=== PATIENT | male | born 1960 | race Caucasian/White ===

== ENCOUNTER 2023-10-21 19:28 | Inpatient (IN) | payer MEDICAID, OTHER ==
[~2023-10-21] VITALS: Ht 170.2 cm; Wt 76.7 kg
[~2023-10-21 19:28] MED LIST: ADVAIR
[2023-10-21 21:11] LABS: HEMATOCRIT. 43.7 % (42.0-52.0); HEMOGLOBIN. 15.2 g/dL (14.0-18.0); MEAN CORPUSCULAR HEMOGLOBIN 31.6 pg (28.0-32.0); MEAN CORPUSCULAR HGB CONC 34.9 g/dL (31.0-37.0); MEAN CORPUSCULAR VOLUME 90.7 fL (80.0-94.0); MEAN PLATELET VOLUME 8.7 fl (7.4-10.4); PLATELET 249 x1000/uL (130-400); RED BLOOD CELL COUNT 4.82 mill/uL (4.7-6.1); RED CELL DISTRIBUTION WIDTH 13.7 % (11.6-14.6); WHITE BLOOD COUNT 7.2 x1000/uL (4.5-11.0)
[2023-10-21 21:14] LABS: DIFFERENTIAL COMMENT 1
[2023-10-21 21:19] LABS: CHLORIDE 105 mEq/L (98-107); POTASSIUM 4.1 mEq/L (3.5-5.1); SODIUM 142 mEq/L (136-145)
[2023-10-21 21:20] LABS: CALCIUM 10.4 mg/dL (8.7-10.4); CARBON DIOXIDE 28 mEq/L (21-32)
[2023-10-21 21:25] LABS: CREATININE 0.9 mg/dL (0.6-1.3); GLUCOSE 108 mg/dL (70-105); UREA NITROGEN BLOOD 22 mg/dL (9-23)
[2023-10-21 21:28] LABS: TROPONIN I HIGH SENSITIVITY 86 ng/L (3.0-53)
[2023-10-21] MEDS ORDERED: METHYLPREDNISOLONE SOD SUCC 125MG/2ML (ACT-O-VIAL) IV STA (21:31)
[2023-10-21 21:33] LABS: CLARITY URINE CLEAR (CLEAR); COLOR URINE YELLOW (YELLOW); GLUCOSE URINE NEGATIVE (NEGATIVE); KETONES URINE TRACE (NEGATIVE); LEUKOCYTE ESTERASE URINE NEGATIVE (NEGATIVE); NITRITE URINE NEGATIVE (NEGATIVE); OCCULT BLOOD URINE 2+ (NEGATIVE); PH URINE 5.5 (4.5-8.0); PROTEIN URINE NEGATIVE (NEGATIVE); UROBILINOGEN URINE 0.2 E.U./dL (0.2-1.0)
[2023-10-21 21:44] LABS: PLATELET ESTIMATE NORMAL
[2023-10-21 21:45] VITALS: PULSE 96; RESP 22; O2SAT 98
[2023-10-21 21:58] LABS: WBC URINE NONE SEEN /hpf (0-2)
[2023-10-21 22:00] LABS: BACTERIA URINE NONE SEEN; SQUAMOUS EPITHELIAL CELL URINE RARE /lpf (RARE/1+)
[2023-10-21] MEDS: ALBUTEROL (0.083%) 2.5MG/3ML NEB HHN STA ×2 (22:01)
[2023-10-21] MEDS: IPRATROPIUM BROMIDE (0.02%) 0.5MG/2.5ML NEB HHN STA ×2 (22:01)
[2023-10-21] MEDS ORDERED: ASPIRIN 81MG TABLET PO ONE (22:45)
[2023-10-22] VITALS (7 sets, daily range): BP systolic 104–123; BP diastolic 56–72; PULSE 78–97; RESP 18–22; TEMP 97.9–98; O2SAT 98–99
[2023-10-22] MEDS: METHYLPREDNISOLONE SOD SUCC 125MG/2ML (ACT-O-VIAL) IV NR (02:00)
[2023-10-22] MEDS: ALBUTEROL (0.5%) 2.5MG/0.5ML NEB HHN ONE (03:10)
[2023-10-22 03:55] LABS: TROPONIN I HIGH SENSITIVITY 87 ng/L (3.0-53)
[2023-10-22] MEDS: ASPIRIN 81MG TABLET PO NR (03:57)
[2023-10-22] MEDS ORDERED: ALBUTEROL (0.083%) 2.5MG/3ML NEB HHN PRN (09:00)
[2023-10-22] MEDS: ENOXAPARIN 40MG/0.4ML SYR SUBCUT SCH (10:00)
[2023-10-22] MEDS: PREDNISONE 20MG TABLET PO NR (10:00)
[2023-10-22] MEDS: IPRATROPIUM/ALBUTEROL 0.5-3(2.5)MG/3ML NEB NEB SCH (10:48)
[2023-10-22] MEDS ORDERED: ACETAMINOPHEN 650MG/20.3ML UDC PO PRN (12:45)
[2023-10-22] MEDS: SODIUM CHLORIDE 0.9% INJ 3ML FLUSH IVF SCH (13:32)
[2023-10-22] MEDS: ACETAMINOPHEN 325MG TABLET PO PRN (13:39)
[2023-10-22] MEDS ORDERED: MAGNESIUM/ALUMINUM HYDROXIDE/SIMETHICONE 30ML UDC PO PRN (15:45)
[2023-10-22] MEDS: PANTOPRAZOLE SODIUM 40 MG/VIAL IV SCH (16:37)
[2023-10-22 17:25] LABS: PHOSPHORUS 2.3 mg/dL (2.5-4.9)
[2023-10-22] MEDS: MAGNESIUM 2 G PREMIX 50 ML IV NR (21:06)
[2023-10-23] VITALS (11 sets, daily range): BP systolic 104–116; BP diastolic 58–71; PULSE 76–103; RESP 18–30; TEMP 97.1–97.8; O2SAT 98
[2023-10-23 07:09] LABS: BASOPHILS % 0.2 % (0.0-2.0); EOSINOPHILS % 0.2 % (0.0-5.0); HEMATOCRIT. 40.8 % (42.0-52.0); HEMOGLOBIN. 13.9 g/dL (14.0-18.0); LYMPHOCYTES % 16.7 % (20.0-50.0); MEAN CORPUSCULAR HEMOGLOBIN 30.8 pg (28.0-32.0); MEAN CORPUSCULAR HGB CONC 34.1 g/dL (31.0-37.0); MEAN CORPUSCULAR VOLUME 90.3 fL (80.0-94.0); MEAN PLATELET VOLUME 9.2 fl (7.4-10.4); MONOCYTES % 10.7 % (2.0-8.0); NEUTROPHILS % 72.2 % (40.0-76.0); PLATELET 232 x1000/uL (130-400); RED BLOOD CELL COUNT 4.51 mill/uL (4.7-6.1); RED CELL DISTRIBUTION WIDTH 13.9 % (11.6-14.6); WHITE BLOOD COUNT 11.3 x1000/uL (4.5-11.0)
[2023-10-23 07:28] LABS: CARBON DIOXIDE 24 mEq/L (21-32); CHLORIDE 107 mEq/L (98-107); POTASSIUM 3.4 mEq/L (3.5-5.1); SODIUM 140 mEq/L (136-145)
[2023-10-23 07:30] LABS: CALCIUM 9.4 mg/dL (8.7-10.4)
[2023-10-23 07:33] LABS: CREATININE 0.9 mg/dL (0.6-1.3)
[2023-10-23 07:34] LABS: GLUCOSE 106 mg/dL (70-105); UREA NITROGEN BLOOD 32 mg/dL (9-23)
[2023-10-23] MEDS: PREDNISONE 20MG TABLET PO SCH (08:16)
[2023-10-23] MEDS ORDERED: *PATIENT'S OWN MEDICATION STORAGE XX SCH (10:15)
[2023-10-23] MEDS: POTASSIUM PHOSPHATE 30 MMOL in DEXT 5% WATER 490 ML IV NR (10:24)
[2023-10-23] MEDS ORDERED: ALBU6.7H15 INH (14:18)
[2023-10-23] MEDS ORDERED: P20 MT (14:18)
[2023-10-23] MEDS ORDERED: FLUT1DIS3 INH (14:19)
[2023-10-24] MEDS ORDERED: FAMOTIDINE 20MG TABLET PO SCH (09:00)
== END 2023-10-23 17:50 | disposition home or self-care (01) | DRG 141 ==
LOC: ER 19:28 → 8WST 10-22 01:13 → EDBEDREQ 10-22 01:36 → EDBEDREQTM 10-22 01:36
PROVIDERS: ADMIT Preventive Medicine Clinical Informatics; ATTEND Preventive Medicine Clinical Informatics
DX: J45.901 Unspecified asthma with (acute) exacerbation (principal); E83.39 Other disorders of phosphorus metabolism; E87.6 Hypokalemia; R79.89 Other specified abnormal findings of blood chemistry; S49.81XA Other specified injuries of right shoulder and upper arm, initial encounter; Z79.51 Long term (current) use of inhaled steroids; Z79.899 Other long term (current) drug therapy; X58.XXXA Exposure to other specified factors, initial encounter; Y93.89 Activity, other specified; Y92.89 Other specified places as the place of occurrence of the external cause; Y99.8 Other external cause status
CPT/HCPCS: 36415; 71045; 73030; 80048; 81003; 83735; 84100; 84484; 85025; 85379; 93005; 94002; 94640; 99291; C9113; J1650; J2930; J3475; J3490; J7060; J7512

== ENCOUNTER 2024-01-05 02:27 | Emergency (ER) | payer SELFPAY ==
[~2024-01-05] VITALS: Ht 167.6 cm; Wt 78.0 kg
[~2024-01-05 02:27] MED LIST changes: +ALBU6.7H15 INH; +FLUT1DIS3 INH; +P20 MT
[2024-01-05] MEDS: ALBUTEROL (0.083%) 2.5MG/3ML NEB HHN STA (03:58)
[2024-01-05] MEDS: IPRATROPIUM BROMIDE (0.02%) 0.5MG/2.5ML NEB HHN STA (04:02)
[2024-01-05] MEDS: PREDNISONE 20MG TABLET PO STA (04:03)
[2024-01-05 04:05] VITALS: PULSE 70; RESP 18; O2SAT 95
[2024-01-05] MEDS ORDERED: P20 MT (05:38)
[2024-01-05] MEDS ORDERED: ALBU6.7H15 INH (05:38)
[2024-01-05 06:20] VITALS: BP 141/90; PULSE 74; RESP 18; TEMP 98
== END 2024-01-05 06:20 | disposition home or self-care (01) ==
LOC: ER 02:27
DX: J45.909 Unspecified asthma, uncomplicated (principal)
CPT/HCPCS: 94640; 99283; J7512; Z7610 ×3